=== PATIENT | female | born 1955 | race American Indian/Alaskan Native ===

== ENCOUNTER 2018-05-29 05:47 | Day surgery (SDC) | payer MEDICARE ==
[2018-05-29] MEDS ORDERED: DIPRIVAN 10 MG/ML IV ONE ×3 (07:24→08:47)
[2018-05-29] MEDS ORDERED: SUBLIMAZE ONE (07:25)
[2018-05-29] MEDS ORDERED: PROVENTIL IH NR (07:45)
[2018-05-29 08:00] LABS: Hematocrit 42.8 % (30.3-42.9); Hemoglobin 14.4 gm/dl (10.1-14.3)
[2018-05-29] MEDS ORDERED: LACTATED RINGERS 1,000 ML IV SCH (08:00)
[2018-05-29] MEDS ORDERED: PEPCID IV NR (08:00)
[2018-05-29] MEDS ORDERED: ANCEF/NS 1 GM/50 ML 1 GM/50 ML BAG IV NR (08:10)
[2018-05-29] MEDS ORDERED: WATER FOR IRRIG STERILE IR ONE ×2 (08:26)
[2018-05-29] MEDS ORDERED: OMNIPAQUE 300 MG/50 ML (CATH LAB) IV ONE (08:26)
[2018-05-29] MEDS ORDERED: VERSED ONE ×2 (08:48)
[2018-05-29] MEDS ORDERED: XYLOCAINE MPF 2% ONE (09:03)
[2018-05-29] MEDS ORDERED: DECADRON ONE (09:03)
[2018-05-29] MEDS ORDERED: QUELICIN ONE (09:03)
[2018-05-29] MEDS ORDERED: ZEMURON IV ONE (09:04)
[2018-05-29] MEDS ORDERED: ROBINUL ONE (09:05)
[2018-05-29] MEDS ORDERED: BLOXIVERZ ONE (09:06)
--- NOTE | 2018-05-29 09:19 | Post Operative Note ---
Date of procedure: 05/29/18 Pre-op diagnosis: r/o IC Post-op diagnosis: other (cystocle) Findings: cystocle Procedure: cysto hydro rpgs Anesthesia: GETA Surgeon: JANIE MORTON Estimated blood loss: none Pathology: none Condition: stable Disposition: PACU
[2018-05-29] MEDS ORDERED: DILAUDID IV PRN ×2 (09:20→10:30)
--- NOTE | 2018-05-29 09:20 | Discharge Summary ---
Short Stay Discharge Plan Activity: no restrictions, other Weight Bearing Status: Full Weight Bearing Diet: low cholesterol, low salt Special Instructions: other (inc fluids ) Follow up with: REBECCA WINTERS MD [Primary Care Provider] - 7 Days JANIE MORTON MD [Staff Physician] - 6 Weeks
--- NOTE | 2018-05-29 09:22 | Anesthesia Consultation ---
Anesthesia Consult and Med Hx Date of service: 05/29/18 - Airway Anesthetic Teeth Evaluation: Bridges ROM Head & Neck: Adequate Mental/Hyoid Distance: Adequate Mallampati Class: Class II Intubation Access Assessment: Probably Good - Pulmonary Exam CTA: Yes - Cardiac Exam Cardiac Exam: RRR - Pre-Operative Health Status ASA Pre-Surgery Classification: ASA3 Proposed Anesthetic Plan: General - Pre-Anesthesia Comment Pre-Anesthesia Comments: LMA ok - Pulmonary Hx Smoking: Yes (1/3 PPD X 30 YRS) Hx Respiratory Symptoms: Yes (chronic cough) Hx Sleep Apnea: Yes (DX SLEEP APNEA , NO CPAP USE.) - Cardiovascular System Hx Hypertension: No - Central Nervous System Hx Neuromuscular Disorder: Yes (Bipolar, anxiety, MDD) Hx Back Pain: Yes (NECK AND BACK PAIN) - Gastrointestinal Hx Gastroesophageal Reflux Disease: Yes - Hematic Hx Anemia: Yes (NOT RECENT) Hx Sickle Cell Disease: No (SC TRAIT ONLY) - Other Systems Hx Cancer: No
--- NOTE | 2018-05-29 09:23 | Anesthesia Day of Surgery ---
Anesthesia Day of Surgery - Day of Surgery Patient Examined: Yes Patient H&P Reviewed: Yes Patient is NPO: Yes Pulmonary Clearance: Yes (albuterol neb)
[2018-05-29] MEDS ORDERED: NACL 0.9% 1000 ML 1,000 ML ONE (09:27)
--- NOTE | 2018-05-29 10:24 | Operative Report ---
PREOPERATIVE DIAGNOSES: Pelvic pain, cystocele, possible interstitial cystitis. POSTOPERATIVE DIAGNOSES: Pelvic pain, cystocele, possible interstitial cystitis, but really no cystoscopic evidence of significant interstitial cystitis. PROCEDURE: Cystoscopy, hydrodistention. SURGEON: Mohit Monroy MD ANESTHESIA: General. FINDINGS: This is a woman with a painful bladder symptoms and a cystocele. All risks and complications discussed. She now presents for cystoscopy. DESCRIPTION OF PROCEDURE: The patient was brought to the operating room and placed on the operating table. Following induction of anesthesia, placed in lithotomy position, prepped and draped in usual sterile fashion. Cystourethroscopy showed a cystocele. The orifices were tucked in and we elevated the bladder to do the retrograde, which showed delicate filling and delicate collecting system and good drainage. The patient tolerated the procedure well. There were no filling defects, no bladder lesions. Bladder easily accommodated 800 mL. There was no glomerulations of any significance except for minimal on the left lateral wall. The patient tolerated the procedure well with no complication, no bleeding. Catheter was removed, brought to recovery in stable condition. JOB# [id number] TONIO/ALICE
[2018-05-29] MEDS ORDERED: TORADOL IV PRN (10:30)
[2018-05-29] MEDS ORDERED: ZOFRAN IV PRN (10:30)
[2018-05-29] MEDS ORDERED: PROVENTIL IH SCH (11:30)
[2018-05-29] MEDS ORDERED: TYLENOL PO ONE (11:51)
[2018-05-29 19:28] VITALS: BP 126/74
--- NOTE | 2018-05-30 07:35 | Fluoroscopy Report ---
FLUOROSCOPY RETROGRADE UROGRAPHY: HISTORY: Interstitial cystitis. FINDINGS: Fluoroscopy was provided by radiology during retrograde urography by the urologist. 8 fluoroscopic images were captured. There is adequate filling of the ureters and intrarenal collecting systems with no filling defects or anatomic abnormalities identified. Please correlate with the procedural report if needed. IMPRESSION: Retrograde pyelograms within normal limits.
== END 2018-05-29 12:25 | disposition home or self-care (01) ==
LOC: OR 05:47
PROVIDERS: ATTEND Urology
DX: N81.10 Cystocele, unspecified (principal); N30.10 Interstitial cystitis (chronic) without hematuria; F17.200 Nicotine dependence, unspecified, uncomplicated; G47.30 Sleep apnea, unspecified; K21.9 Gastro-esophageal reflux disease without esophagitis; M19.90 Unspecified osteoarthritis, unspecified site; F32.9 Major depressive disorder, single episode, unspecified; F41.9 Anxiety disorder, unspecified; Z87.440 Personal history of urinary (tract) infections; Z88.5 Allergy status to narcotic agent; Z88.2 Allergy status to sulfonamides; Z86.2 Personal history of diseases of the blood and blood-forming organs and certain disorders involving the immune mechanism; Z79.899 Other long term (current) drug therapy; Z98.890 Other specified postprocedural states
CPT/HCPCS: 36415; 52260; 74420; 85014; 85018; A4217; C1758; J0330; J0690; J1100; J2250; J2704; J2710; J3010; J7030; J7120; Q9967